=== PATIENT | female | born 1960 | race Caucasian/White ===

== ENCOUNTER 2018-12-25 18:41 | Emergency (ER) | payer BC ==
--- OUTSIDE RECORDS SUMMARY | 2018-12-25 18:43 | XMS REPORT | Clinical Summary ---
:1960 Author Organization [facility] Address [address] [place] [id number] Care Team Providers Name Role Phone Costa Ann MD Primary Care Provider Allergies No Known Allergies Medications Medication Sig Dispensed Refills Start Date End Date Status naproxen (NAPROSYN) Take 500 mg by 0 Active 500 MG tablet mouth 2 (two) times a day with meals. traMADol (ULTRAM) 50 Take 50 mg by 0 Active mg tablet mouth every 6 (six) hours as needed for moderate pain. oxyCODone (ROXICODONE) Take 10 mg by 0 Active 10 MG tablet mouth every 6 (six) hours as needed for moderate pain. mirtazapine (REMERON) Take 15 mg by 0 Active 15 MG tablet mouth nightly. Active Problems Problem Noted Date Malignant neoplasm of left lung 08/29/2017 Lung nodule 07/24/2017 Family History Medical History Relation Name Comments Lung cancer Father Anuerysm Mother Relation Name Status Comments Father Mother Social History Tobacco Use Types Packs/Day Years Used Date Former Smoker Cigarettes 1.5 30 Quit: 06/27/2014 Smokeless Tobacco: Never Used Tobacco Cessation: Counseling Given: No Alcohol Use Drinks/Week oz/Week Comments No Sex Assigned at Date Recorded Not on file Job Start Date Occupation Industry Not on file Not on file Not on file Travel History Travel Start Travel End No recent travel history available. Last Filed Vital Signs Not on file Plan of Treatment Health Maintenance Due Date Last Done Comments CERVICAL CANCER SCREENING 1980 BREAST CANCER SCREENING 2009 COLON CANCER SCREENING 2009 SHINGLES VACCINES (1 of 2) 2009 INFLUENZA VACCINE 07/02/2018 Implants Implanted Type Area Regional Facilities Manager Device Shelf Model / Identifier Expiration Serial / Date Lot Kit Selnt Plrl Air Leak 4ml Strl Progel - [id number] Surgical N/A: N/A [employer] [id number] / Implanted: 07/24/2017 (Quantity not on file) Implants; / Expanders; Extenders; Surgical Wires Results Not on fileafter 12/24/2017 Insurance Payer Benefit Plan / Group Subscriber ID Type Phone Address BCBS BCBS CHOICE PPO/FEDERAL EMPL PPO xxxxxxxxxxxx PPO ([place]) [place] [address] Advance Directives Patient has advance care planning documents on file. For more information, please contact:Max [address] [place] [address]
--- NOTE | 2018-12-25 19:47 | RAD REPORT ---
EXAM DESCRIPTION: RAD - Chest Single View - 12/25/2018 7:40 pm CLINICAL HISTORY: CHEST PAIN Chest pain. COMPARISON: Chest Pa And Lat (2 Views) dated 10/20/2018; Chest Pa And Lat (2 Views) dated 01/26/2017; CHEST PA AND LAT 2 VIEW dated 01/10/2016; CHEST PA AND LAT 2 VIEW dated 01/26/2015 FINDINGS: Portable technique limits examination quality. Prominent emphysematous changes are present throughout the lungs. Small pleural thickening is present the left costophrenic angle, chronic in appearance. Right apical pleural thickening is noted, unchan ged. The heart is normal in size. No displaced fractures. IMPRESSION: COPD without acute process seen.
[2018-12-25 20:19] LABS: Bilirubin Direct < 0.1 mg/dL (0-0.2); Bilirubin Total 0.2 mg/dL (0.2-1.0); Magnesium 2.1 mg/dL (1.8-2.4); Potassium 3.7 mmol/L (3.5-5.1); Troponin (Emerg Dept Use Only) < 0.02 ng/mL (0.0-0.045)
[2018-12-25] MEDS ORDERED: MAGNE/ALUM HYDROXD 30 ML UCUP ONE (20:45)
[2018-12-25] MEDS ORDERED: LIDOCAINE VISCOUS 2% SOLN 15 ML UDC ONE (20:46)
[2018-12-25 21:11] LABS: RBC Red Blood Cell Count 3.17 M/uL (3.86-4.86)
[2018-12-25 21:12] LABS: Hematocrit 22.7 % (36.0-45.0)
[2018-12-25 21:13] LABS: Lymphocytes % 26.2 % (15.3-44.8); MPV 7.5 fL (7.6-11.3)
[2018-12-25 21:14] LABS: Basophils % 0.8 % (0-1.3); Monocytes % 11.7 % (3.3-12.3)
[2018-12-25 21:15] LABS: Absolute Neutrophil 5.7 K/uL (1.8-8.0)
[2018-12-25 21:17] LABS: Absolute Lymphocytes (CBC) 2.5 K/uL (0.7-4.9); Absolute Monocytes 1.1 K/uL (0.1-1.3)
[2018-12-25 21:22] LABS: Bicarbonate 28 mmol/L (21-32); Sodium Level 137 mmol/L (136-145)
[2018-12-25 21:23] LABS: ALT/SGPT 12 U/L (12-78); AST/SGOT 9 U/L (15-37); Alkaline Phosphatase 132 U/L (45-117); BUN Blood Urea Nitrogen 18 mg/dL (7-18); Glucose Level 104 mg/dL (74-106); Protein, Total 7.8 g/dL (6.4-8.2)
[2018-12-25 21:24] LABS: Albumin 3.3 g/dL (3.4-5.0); Lipase 99 U/L (73-393); NT PRO-BNP 60 pg/mL (<125)
[2018-12-25 21:28] LABS: Anisocytosis 1+; Blood Morphology Comment NOTED (NOT SEEN); Hypochromasia 2+; Platelet Estimate INCR; Polychromasia SLIGHT; Urine White Blood Cell Casts OK
[2018-12-25 21:33] LABS: Protime INR 1.11
--- NOTE | 2018-12-25 21:49 | ER ---
Nurse's Notes [facility] Name: Martha Mcnamara Age: 58 yrs Sex: Female : 1960 Arrival Date: 12/25/2018 Time: 18:44 Bed 24 Private MD: Costa Ann T Diagnosis: Anemia, unspecified;Chest pain, unspecified;Heartburn Presentation: 12/25 19:05 Presenting complaint: Patient states: complains of epigastric abdominal burning sine tl3 last week-end, no hx of GERD. Transition of care: patient was not received from another setting of care. Onset of symptoms was December 21, 2017. Risk Assessment: Do you want to hurt yourself or someone else? Patient reports no desire to harm self or others. Initial Sepsis Screen: Does the patient meet any 2 criteria? No. Patient's initial sepsis screen is negative. Does the patient have a suspected source of infection? No. Patient's initial sepsis screen is negative. Care prior to arrival: None. 19:05 Method Of Arrival: Ambulatory tl3 19:05 Acuity: KISHA 3 tl3 Triage Assessment: 19:08 General: Appears uncomfortable, slender, well groomed, well developed, well nourished, tl3 Behavior is calm, cooperative, appropriate for age. Pain: Complains of pain in epigastric area. EENT: No signs and/or symptoms were reported regarding the EENT system. Neuro: Level of Consciousness is awake, alert, obeys commands, Oriented to person, place, time, situation, Appropriate for age. Cardiovascular: Patient's skin is warm and dry. Respiratory: Airway is patent Respiratory effort is even, unlabored, Respiratory pattern is regular, symmetrical. GI: Reports indigestion. : No signs and/or symptoms were reported regarding the genitourinary system. Derm: No signs and/or symptoms reported regarding the dermatologic system. Historical: - Home Meds: 19:08 Naprosyn Oral 2 times per day [Active]; oxycodone 7.5 mg Oral tab 1 tab every 6 hours tl3 [Active]; - PMHx: 19:08 Lung CA; Pneumonia; tl3 - PSHx: 19:08 Disc surgery; Joint replacement; Lobectomy; tl3 - Immunization history:: Adult Immunizations up to date. - Social history:: Smoking status: unknown. - Ebola Screening: : No symptoms or risks identified at this time. Screenin:11 Abuse screen: Denies threats or abuse. Nutritional screening: No deficits noted. tl3 Tuberculosis screening: No symptoms or risk factors identified. Fall Risk None identified. Assessment: 19:11 Reassessment: No changes from previously documented assessment. tl3 20:07 Reassessment: Patient appears in no apparent distress at this time. No changes from tl3 previously documented assessment. Patient and/or family updated on plan of care and expected duration. Pain level reassessed. Patient is alert, oriented x 3, equal unlabored respirations, skin warm/dry/pink. 21:00 Reassessment: Patient appears in no apparent distress at this time. No changes from tl3 previously documented assessment. Patient and/or family updated on plan of care and expected duration. Pain level reassessed. Patient is alert, oriented x 3, equal unlabored respirations, skin warm/dry/pink. critical HGB level of 7.2 called from lab, [place] notified. 21:28 Reassessment: Patient appears in no apparent distress at this time. No changes from tl3 previously documented assessment. Patient and/or family updated on plan of care and expected duration. Pain level reassessed. Patient is alert, oriented x 3, equal unlabored respirations, skin warm/dry/pink. reno at bedside for occult blood test. 21:52 Reassessment: Patient appears in no apparent distress at this time. No changes from tl3 previously documented assessment. Patient and/or family updated on plan of care and expected duration. Pain level reassessed. Patient is alert, oriented x 3, equal unlabored respirations, skin warm/dry/pink. Vital Signs: 19:08 BP 126 / 81; Pulse 85; Resp 18; Temp 98.6(O); Pulse Ox 100% on R/A; Weight 56.7 kg; tl3 Height 5 ft. 5 in. (165.10 cm); 20:07 BP 115 / 67; Pulse 79; Resp 18; Pulse Ox 99% on R/A; tl3 21:00 BP 139 / 75; Pulse 73; Resp 18; Pulse Ox 100% on R/A; tl3 21:52 BP 130 / 80; Pulse 70; Resp 18; Pulse Ox 100% on R/A; tl3 19:08 Body Mass Index 20.80 (56.70 kg, 165.10 cm) tl3 ED Course: 18:44 Patient arrived in ED. mr 18:44 Costa Ann MD is Private Physician. mr 18:57 [place] Collins NP is PHCP. pm1 18:57 Daniele West MD is Attending Physician. pm1 19:04 Adri Amaya, RN is Primary Nurse. tl3 19:07 Triage completed. tl3 19:08 Arm band placed on right wrist. tl3 19:11 Patient has correct armband on for positive identification. Bed in low position. Call tl3 light in reach. 19:11 No provider procedures requiring assistance completed. tl3 19:41 Inserted saline lock: 22 gauge in left wrist, using aseptic technique. Blood collected. mg2 by ZARA Rush. 20:06 XRAY Chest (1 view) Sent. tl3 21:00 Warm blanket given. tl3 21:52 IV discontinued, intact, bleeding controlled, No redness/swelling at site. Pressure tl3 dressing applied. 21:58 [place] MD is Referral Physician. pm1 Administered Medications: 20:43 Drug: GI Cocktail without - (Maalox Suspension 30 ml, Lidocaine Liquid 2 % 15 mg2 ml) Route: PO; 21:10 Follow up: Response: No adverse reaction tl3 21:51 Drug: Pepcid 20 mg Route: IVP; Infused Over: 2 mins; Site: left wrist; tl3 21:53 Follow up: Response: Medication administered at discharge. tl3 Outcome: 21:49 Discharge ordered by . pm1 21:52 Discharged to home ambulatory. tl3 21:52 Condition: stable 21:52 Discharge instructions given to patient, Instructed on discharge instructions, follow up and referral plans. medication usage, Demonstrated understanding of instructions, follow-up care, medications, Prescriptions given X 2. 22:06 Patient left the ED. tl3 Signatures: Marybeth Kaiser mr [place] Collins, JESUS ELECTRONICS TEACHER pm1 Adri Amaya, ZARA RN tl3 Shaun Saenz RN RN mg2
--- NOTE | 2018-12-25 21:49 | EDPHYS ---
Physician Documentation [facility] Name: Martha Mcnamara Age: 58 yrs Sex: Female : 1960 Arrival Date: 12/25/2018 Time: 18:44 Bed 24 Private MD: Costa Ann T ED Physician Daniele West HPI: 12/25 19:10 This 58 yrs old Female presents to ER via Ambulatory with complaints of pm1 Heartburn. 19:10 The patient or guardian reports chest pain that is located primarily in the mid-sternal pm1 area. Onset: 1 week(s) ago. The pain does not radiate. Associated signs and symptoms: Pertinent negatives: abdominal pain, cough, diaphoresis, dizziness, headache, lightheadedness, nausea, near syncope, palpitations, shortness of breath, vomiting. The chest pain is described as burning. Duration: The patient or guardian reports a single episode, that is still ongoing, and unchanged. Modifying factors: The symptoms are alleviated by nothing. the symptoms are aggravated by eating. Severity of pain: in the emergency department the pain is unchanged. The patient has not experienced similar symptoms in the past. The patient has not recently seen a physician. Historical: - Home Meds: 19:08 Naprosyn Oral 2 times per day [Active]; oxycodone 7.5 mg Oral tab 1 tab every 6 hours tl3 [Active]; - PMHx: 19:08 Lung CA; Pneumonia; tl3 - PSHx: 19:08 Disc surgery; Joint replacement; Lobectomy; tl3 - Immunization history:: Adult Immunizations up to date. - Social history:: Smoking status: unknown. - Ebola Screening: : No symptoms or risks identified at this time. ROS: 19:10 Constitutional: Negative for fever, chills, and weight loss, Eyes: Negative for injury, pm1 pain, redness, and discharge, ENT: Negative for injury, pain, and discharge, Neck: Negative for injury, pain, and swelling. 19:10 Respiratory: Negative for shortness of breath, cough, wheezing, and pleuritic chest pain, Abdomen/GI: Negative for abdominal pain, nausea, vomiting, diarrhea, and constipation, Back: Negative for injury and pain, : Negative for injury, bleeding, discharge, and swelling, MS/Extremity: Negative for injury and deformity, Skin: Negative for injury, rash, and discoloration, Neuro: Negative for headache, weakness, numbness, tingling, and seizure. 19:10 Cardiovascular: Positive for chest pain, Negative for edema, orthopnea, palpitations. Exam: 19:10 Constitutional: This is a well developed, well nourished patient who is awake, alert, pm1 and in no acute distress. Head/Face: Normocephalic, atraumatic. Eyes: Pupils equal round and reactive to light, extra-ocular motions intact. Lids and lashes normal. Conjunctiva and sclera are non-icteric and not injected. Cornea within normal limits. Periorbital areas with no swelling, redness, or edema. ENT: Nares patent. No nasal discharge, no septal abnormalities noted. Tympanic membranes are normal and external auditory canals are clear. Oropharynx with no redness, swelling, or masses, exudates, or evidence of obstruction, uvula midline. Mucous membranes moist. Neck: Trachea midline, no thyromegaly or masses palpated, and no cervical lymphadenopathy. Supple, full range of motion without nuchal rigidity, or vertebral point tenderness. No Meningismus. Chest/axilla: Normal chest wall appearance and motion. Nontender with no deformity. No lesions are appreciated. Cardiovascular: Regular rate and rhythm with a normal S1 and S2. No gallops, murmurs, or rubs. Normal PMI, no JVD. No pulse deficits. Respiratory: Lungs have equal breath sounds bilaterally, clear to auscultation and percussion. No rales, rhonchi or wheezes noted. No increased work of breathing, no retractions or nasal flaring. Abdomen/GI: Soft, non-tender, with normal bowel sounds. No distension or tympany. No guarding or rebound. No evidence of tenderness throughout. Back: No spinal tenderness. No costovertebral tenderness. Full range of motion. 19:10 MS/ Extremity: Pulses equal, no cyanosis. Neurovascular intact. Full, normal range of motion. 19:10 Skin: Appearance: normal except for affected area, Color: pale. 19:10 Neuro: Orientation: is normal, Motor: is normal, moves all fours, Sensation: is normal, no obvious gross deficits. 21:22 Abdomen/GI: Rectal exam: rectal tone normal, Stool: brown, guaiac negative, mass, is pm1 not appreciated, swelling, is not appreciated, tenderness, is not appreciated, Shaun ZUÑIGA. Vital Signs: 19:08 BP 126 / 81; Pulse 85; Resp 18; Temp 98.6(O); Pulse Ox 100% on R/A; Weight 56.7 kg; tl3 Height 5 ft. 5 in. (165.10 cm); 20:07 BP 115 / 67; Pulse 79; Resp 18; Pulse Ox 99% on R/A; tl3 21:00 BP 139 / 75; Pulse 73; Resp 18; Pulse Ox 100% on R/A; tl3 21:52 BP 130 / 80; Pulse 70; Resp 18; Pulse Ox 100% on R/A; tl3 19:08 Body Mass Index 20.80 (56.70 kg, 165.10 cm) tl3 MDM: 19:03 Patient medically screened. pm1 21:24 Data reviewed: vital signs. Data interpreted: Pulse oximetry: on room air is 100 %. pm1 Interpretation: normal. 21:24 ED course: GI cocktail resolved patient's pain. pm1 21:46 Counseling: I had a detailed discussion with the patient and/or guardian regarding: the pm1 historical points, exam findings, and any diagnostic results supporting the discharge/admit diagnosis, lab results, radiology results, the need for outpatient follow up, a bakery decorator, EGD, to return to the emergency department if symptoms worsen or persist or if there are any questions or concerns that arise at home. 21:51 ED course: Patient with history of anemia in the past with iron supplementation. pm1 Patient with negative stool guaiac and asymptomatic for anemia. Pain resolved with GI cocktail. Will discharge patient home with iron supplement, and Pepcid. Recommended follow up with GI for EGD and PCP for anemia management. 12/25 19:08 Order name: Basic Metabolic Panel; Complete Time: 21:26 pm12/25 19:08 Order name: CBC with Diff; Complete Time: 21:33 pm12/25 19:08 Order name: LFT's; Complete Time: 21: pm12/25 19:08 Order name: Magnesium; Complete Time: 21: pm12/25 19:08 Order name: NT PRO-BNP; Complete Time: 21: pm12/25 19:08 Order name: PT-INR; Complete Time: 21:40 pm1 12/25 19:08 Order name: Troponin (emerg Dept Use Only); Complete Time: 21:26 pm1 12/25 19:08 Order name: XRAY Chest (1 view) pm1 12/25 19:08 Order name: Lipase; Complete Time: 21:26 pm1 12/25 19:51 Order name: RAD; Complete Time: 19:55 EDMS 12/25 21:09 Order name: CBC Smear Scan; Complete Time: 21:33 EDMS 12/25 19:08 Order name: EKG; Complete Time: 19:09 pm1 12/25 19:08 Order name: Cardiac monitoring; Complete Time: 19:40 pm1 12/25 19:08 Order name: EKG - Nurse/Tech; Complete Time: 19:40 pm1 12/25 19:08 Order name: IV Saline Lock; Complete Time: 19:40 pm1 12/25 19:08 Order name: Labs collected and sent; Complete Time: 19:40 pm1 12/25 19:08 Order name: O2 Per Protocol; Complete Time: 19:15 pm1 12/25 19:08 Order name: O2 Sat Monitoring; Complete Time: 19:15 pm1 Administered Medications: 20:43 Drug: GI Cocktail without - (Maalox Suspension 30 ml, Lidocaine Liquid 2 % 15 mg2 ml) Route: PO; 21:10 Follow up: Response: No adverse reaction tl3 21:51 Drug: Pepcid 20 mg Route: IVP; Infused Over: 2 mins; Site: left wrist; tl3 21:53 Follow up: Response: Medication administered at discharge. tl3 Disposition: 12/25/18 21:49 Discharged to Home. Impression: Anemia, unspecified, Chest pain, unspecified, Heartburn. - Condition is Stable. - Discharge Instructions: Anemia, Nonspecific, Gastroesophageal Reflux Disease, Adult. - Prescriptions for Ferrous Sulfate 325 mg (65 mg Iron) Oral Tablet - take 1 tablet by ORAL route every 8 hours; 90 tablet. Pepcid 20 mg Oral Tablet - take 1 tablet by ORAL route once daily; 20 tablet. - Medication Reconciliation Form, Thank You Letter, Antibiotic Education, Prescription Opioid Use form. - Follow up: Emergency Department; When: As needed; Reason: Worsening of condition. Follow up: Private Physician; When: 2 - 3 days; Reason: Recheck today's complaints, Continuance of care, Re-evaluation by your physician. Follow up: [place] MD; When: 2 - 3 days; Reason: Recheck today's complaints, Continuance of care, Re-evaluation by your physician. - Problem is new. - Symptoms have improved. Addendum: 01/01/2019 08:57 Co-signature as Attending Physician, Daniele West MD I agree with the assessment and k dr plan of care. Signatures: Dispatcher [employer] [facility] Daniele West MD MD kdr Jignesh Collins NP [employer] pm1 Adri Amaya, ZARA RN tl3 Shaun Saenz RN RN mg2 Corrections: (The following items were deleted from the chart) 12/25 21:09 20:01 Manual Differential ordered. [facility] : 20:31 Manual Differential reviewed. pm1 EDIA 21:58 21:49 12/25/2018 21:49 Discharged to Home. Impression: Anemia, unspecified; Chest pain, pm1 unspecified; Heartburn. Condition is Stable. Forms are Medication Reconciliation Form, Thank You Letter, Antibiotic Education, Prescription Opioid Use. Follow up: Emergency Department; When: As needed; Reason: Worsening of condition. Follow up: Private Physician; When: 2 - 3 days; Reason: Recheck today's complaints, Continuance of care, Re-evaluation by your physician. Problem is new. Symptoms have improved. pm1 22:06 21:58 12/25/2018 21:49 Discharged to Home. Impression: Anemia, unspecified; Chest pain, tl3 unspecified; Heartburn. Condition is Stable. Discharge Instructions: Anemia, Nonspecific, Esophagitis. Prescriptions for Ferrous Sulfate 325 mg (65 mg Iron) Oral Tablet - take 1 tablet by ORAL route every 8 hours; 90 tablet, Protonix 40 mg Oral Tablet - take 1 tablet by ORAL route once daily; 30 tablet. and Forms are Medication Reconciliation Form, Thank You Letter, Antibiotic Education, Prescription Opioid Use. Follow up: Emergency Department; When: As needed; Reason: Worsening of condition. Follow up: Private Physician; When: 2 - 3 days; Reason: Recheck today's complaints, Continuance of care, Re-evaluation by your physician. Follow up: [place]; When: 2 - 3 days; Reason: Recheck today's complaints, Continuance of care, Re-evaluation by your physician. Problem is new. Symptoms have improved. pm1
[2018-12-25] MEDS ORDERED: FAMOTIDINE 20 MG/2 ML VIAL IV ONE (21:59)
[2018-12-25 22:21] VITALS: TEMP 98.6
[2018-12-25 22:24] VITALS: O2SAT 100
[2018-12-25 22:26] VITALS: BP 130/80
--- NOTE | 2018-12-26 11:53 | EKG ---
Test Date: 2018-12-25 Test Time: 19:36:23 Press Manager: MG MEASUREMENT RESULTS: Intervals: Rate: 73 ID: [id number] QRSD: 84 QT: 392 QTc: 431 [place]: P: 27 ID: [id number] QRS: 69 T: 49 INTERPRETIVE STATEMENTS: Normal sinus rhythm Normal ECG Compared to ECG 06/05/2014 12:42:01 ST (T wave) deviation no longer present Possible ischemia no longer present Electronically Signed On 12-26-18 11:51:54 STUDENT SUPPORT SERVICES DIRECTOR by Jefe Frausto
== END 2018-12-25 22:06 | disposition home or self-care (01) ==
LOC: ER 18:41
DX: R12 Heartburn (principal); D64.9 Anemia, unspecified; R07.9 Chest pain, unspecified
CPT/HCPCS: 36415; 71045; 80048; 80076; 83690; 83735; 83880; 84484; 85025; 85610; 93005; 96374; 99284

== ENCOUNTER 2019-12-13 12:50 | Emergency (ER) | payer BC ==
[2019-12-13] MEDS ORDERED: IPRATROPIUM BROM 0.5MG/2.5ML ONE (13:29)
[2019-12-13] MEDS ORDERED: METHYLPREDNISOLONE 125 MG INJ ONE (13:29)
[2019-12-13] MEDS ORDERED: LEVALBUTEROL 1.25 MG/3 ML NEB ONE (13:29)
--- NOTE | 2019-12-13 15:17 | RAD REPORT ---
EXAM DESCRIPTION: RAD - Chest Pa And Lat (2 Views) - 12/13/2019 1:52 pm CLINICAL HISTORY: hx of cancer and lobectomy/radiation, sob;Cough Chest pain. COMPARISON: Chest Pa And Lat (2 Views) dated 01/07/2019; Chest Single View dated 12/25/2018; Chest Pa A nd Lat (2 Views) dated 10/20/2018; Chest Pa And Lat (2 Views) dated 01/26/2017; Thorax W/ Con dated FINDINGS: Prominent emphysema is noted. Right apical pleural thickening is seen. A left hilar/suprah ilar mass lesion is identified, new since comparative chest radiograph. Mild scarring is present in t he left upper lobe laterally. The heart is upper limit of normal in size. IMPRESSION: A left hilar/ suprahilar mass has developed since the comparative study, likely neoplasi a.
--- NOTE | 2019-12-13 15:40 | EDPHYS ---
Physician Documentation [facility] Name: Martha Mcnamara Age: 58 yrs Sex: Female : 1960 Arrival Date: 12/13/2019 Time: 12:53 Bed 15 Private MD: Costa Ann T ED Physician Ernesto Aragon HPI: 12/13 14:10 This 58 yrs old Female presents to ER via Ambulatory with complaints of rn Breathing Difficulty. 14:10 The patient has shortness of breath with light activity. Onset: The symptoms/episode rn began/occurred 1 week(s) ago. Duration: The symptoms are intermittent. The patient's shortness of breath is aggravated by exertion, is alleviated by rest. Severity of symptoms: At their worst the symptoms were moderate in the emergency department the symptoms are unchanged. The patient has experienced similar episodes in the past. reports sob with exertion, has COPD and hx of lung cancer but cancer free currently, still vapes, no fever. . Historical: - Allergies: 13:00 No Known Allergies; aj1 - Home Meds: 13:00 Naprosyn Oral 2 times per day [Active]; oxycodone 7.5 mg Oral tab 1 tab every 6 hours aj1 [Active]; unknown anxiety medicine [Active]; - PMHx: 13:00 Lung CA; Pneumonia; aj1 - Immunization history:: Flu vaccine is up to date. - Social history:: Smoking status: Patient/guardian denies using tobacco. - Ebola Screening: : Patient denies travel to an Ebola-affected area in the 21 days before illness onset. - Family history:: not pertinent. - Hospitalizations: : No recent hospitalization is reported. ROS: 14:10 Constitutional: Negative for fever, chills, and weight loss, Eyes: Negative for injury, rn pain, redness, and discharge, Neck: Negative for injury, pain, and swelling, Cardiovascular: Negative for chest pain, palpitations, and edema, Respiratory: + sob Abdomen/GI: Negative for abdominal pain, nausea, vomiting, diarrhea, and constipation, Back: Negative for injury and pain, MS/Extremity: Negative for injury and deformity, Skin: Negative for injury, rash, and discoloration, Neuro: Negative for headache, weakness, numbness, tingling, and seizure. Exam: 14:10 Constitutional: This is a well developed, well nourished patient who is awake, alert, rn and in no acute distress. Head/Face: Normocephalic, atraumatic. Eyes: Pupils equal round and reactive to light, extra-ocular motions intact. Lids and lashes normal. Conjunctiva and sclera are non-icteric and not injected. Cornea within normal limits. Periorbital areas with no swelling, redness, or edema. Cardiovascular: Regular rate and rhythm. No pulse deficits. Respiratory: + diffuse exp wheezing, no retractions Abdomen/GI: soft, non-tender MS/ Extremity: Pulses equal, no cyanosis. Neurovascular intact. Full, normal range of motion. Equal circumference. Neuro: Awake and alert, GCS 15, oriented to person, place, time, and situation. Cranial nerves II-XII grossly intact. Motor strength 5/5 in all extremities. Sensory grossly intact. Vital Signs: 13:00 BP 129 / 90; Pulse 86; Resp 18; Temp 97.8; Pulse Ox 97% on R/A; Weight 56.7 kg (R); aj1 Height 5 ft. 5 in. (165.10 cm) (R); Pain 0/10; 14:08 BP 118 / 80; Pulse 75; Resp 17; Pulse Ox 100% on Nebulizer Mask; tw2 15:04 BP 121 / 81; Pulse 84; Resp 17; Pulse Ox 95% on R/A; tw2 15:48 BP 127 / 83; Pulse 74; Resp 17; Pulse Ox 95% on R/A; tw2 13:00 Body Mass Index 20.80 (56.70 kg, 165.10 cm) aj1 MDM: 13:07 Patient medically screened. rn 15:31 Differential diagnosis: Chronic Obstructive Pulmonary Disease pneumonia, Pneumothorax rn lung mass, recurrence of cancer. Data reviewed: vital signs, nurses notes, radiologic studies, plain films, and as a result, I will discharge patient. Counseling: I had a detailed discussion with the patient and/or guardian regarding: the historical points, exam findings, and any diagnostic results supporting the discharge/admit diagnosis, radiology results, the need for outpatient follow up, to return to the emergency department if symptoms worsen or persist or if there are any questions or concerns that arise at home. Response to treatment: the patient's symptoms have markedly improved after treatment, and as a result, I will discharge patient. Special discussion: I discussed with the patient/guardian in detail that at this point there is no indication for admission to the hospital. It is understood, however, that if the symptoms persist or worsen the patient needs to return immediately for re-evaluation. Based on the history and exam findings, there is no indication for further emergent testing or inpatient evaluation. I discussed with the patient/guardian the need to see the tilesetter/oncologist for further evaluation of the symptoms. I discussed with the patient/guardian the need to see the marketing data specialist for further evaluation of the symptoms. 15:35 ED course: Discussed possible recurrence of lung cancer with patient, she has dealt rn with recurrence before and undergone treatment 3 times, knows what to do and understands need to f/u and notify her lung and cancer doctors. For now, will treat with steroids and inhaler prn as felt better with treatment here. . 12/13 13:21 Order name: XRAY Chest Pa And Lat (2 Views); Complete Time: 15:18 rn 12/13 13:21 Order name: IV Start; Complete Time: 13:38 rn Administered Medications: 13:30 Drug: Xopenex (3) 1.25 mg Route: Inhalation; tw2 13:30 Drug: AtroVENT Aerosol 0.5 mg Route: Inhalation; tw2 13:35 Drug: SOLU-Medrol 125 mg Route: IVP; Site: right antecubital; tw2 15:04 Follow up: Response: No adverse reaction tw2 Disposition: 12/13/19 15:39 Discharged to Home. Impression: Chronic obstructive pulmonary disease, unspecified, Left lung mass. - Condition is Stable. - Discharge Instructions: Chronic Obstructive Pulmonary Disease, Lung Cancer. - Prescriptions for Prednisone 20 mg Oral Tablet - take 3 tablet by ORAL route once daily for 5 days; 15 tablet. Albuterol Sulfate 90 mcg/actuation - inhale 1-2 puff by INHALATION route every 4-6 hours; 1 Inhaler. - Medication Reconciliation Form, Thank You Letter, Antibiotic Education, Prescription Opioid Use form. - Follow up: Private Physician; When: 2 - 3 days; Reason: Recheck today's complaints, Re-evaluation by your physician. - Problem is new. - Symptoms have improved. Signatures: Dispatcher [employer] EDMS Katey Celestin RN RN aj1 Ernesto Aragon MD MD rn Wise, Tara, RN RN tw2 Corrections: (The following items were deleted from the chart) 15:37 15:31 Special discussion: I discussed with the patient/guardian in detail that at this rn point there is no indication for admission to the hospital. It is understood, however, that if the symptoms persist or worsen the patient needs to return immediately for re-evaluation. Based on the history and exam findings, there is no indication for further emergent testing or inpatient evaluation. I discussed with the patient/guardian the need to see the tilesetter/oncologist for further evaluation of the symptoms. I discussed with the patient/guardian the need to see the marketing data specialist for further evaluation of the symptoms. rn 15:50 15:39 12/13/2019 15:39 Discharged to Home. Impression: Chronic obstructive pulmonary tw2 disease, unspecified; Left lung mass. Condition is Stable. Forms are Medication Reconciliation Form, Thank You Letter, Antibiotic Education, Prescription Opioid Use. Follow up: Private Physician; When: 2 - 3 days; Reason: Recheck today's complaints, Re-evaluation by your physician. Problem is new. Symptoms have improved. rn
--- NOTE | 2019-12-13 15:40 | ER ---
Nurse's Notes [facility] Name: Martha Mcnamara Age: 58 yrs Sex: Female : 1960 Arrival Date: 12/13/2019 Time: 12:53 Bed 15 Private MD: Costa Ann T Diagnosis: Chronic obstructive pulmonary disease, unspecified;Left lung mass Presentation: 12/13 12:58 Presenting complaint: Patient states: "I can't walk very far before I get really out of aj1 breath" Patient reports productive cough. Denies congestion. Denies fever. Denies N/V/D. Transition of care: patient was not received from another setting of care. Onset of symptoms was December 13, 2019. Risk Assessment: Do you want to hurt yourself or someone else? Patient reports no desire to harm self or others. Initial Sepsis Screen: Does the patient meet any 2 criteria? No. Patient's initial sepsis screen is negative. Does the patient have a suspected source of infection? Yes: Productive cough/pneumonia. Care prior to arrival: None. 12:58 Method Of Arrival: Ambulatory aj1 12:58 Acuity: KISHA 3 aj1 Triage Assessment: 13:00 General: Appears in no apparent distress. comfortable, Behavior is calm, cooperative, aj1 appropriate for age. Pain: Denies pain. EENT:. Neuro: Level of Consciousness is awake, alert, obeys commands. Cardiovascular: Patient's skin is warm and dry. Respiratory: Reports shortness of breath cough that is productive, Airway is patent Respiratory effort is even, unlabored, Respiratory pattern is regular, symmetrical, Onset: The symptoms/episode began/occurred gradually, the patient has mild shortness of breath. Historical: - Allergies: 13:00 No Known Allergies; aj1 - Home Meds: 13:00 Naprosyn Oral 2 times per day [Active]; oxycodone 7.5 mg Oral tab 1 tab every 6 hours aj1 [Active]; unknown anxiety medicine [Active]; - PMHx: 13:00 Lung CA; Pneumonia; aj1 - Immunization history:: Flu vaccine is up to date. - Social history:: Smoking status: Patient/guardian denies using tobacco. - Ebola Screening: : Patient denies travel to an Ebola-affected area in the 21 days before illness onset. - Family history:: not pertinent. - Hospitalizations: : No recent hospitalization is reported. Screenin:04 Abuse screen: Denies threats or abuse. Nutritional screening: No deficits noted. tw2 Tuberculosis screening: No symptoms or risk factors identified. Fall Risk None identified. Assessment: 13:02 General: Appears in no apparent distress. slender, Behavior is calm, cooperative, tw2 appropriate for age. Neuro: Level of Consciousness is awake, alert, obeys commands, Oriented to person, place, time, situation. Cardiovascular: Heart tones S1 S2 Patient's skin is warm and dry. Rhythm is regular. Respiratory: Airway is patent Respiratory effort is even, unlabored, Respiratory pattern is regular, symmetrical, Breath sounds are clear bilaterally. Respiratory: Reports shortness of breath at rest on exertion. GI: No signs and/or symptoms were reported involving the gastrointestinal system. Abdomen is flat, Bowel sounds present X 4 quads. : No signs and/or symptoms were reported regarding the genitourinary system. EENT: No signs and/or symptoms were reported regarding the EENT system. Derm: No signs and/or symptoms reported regarding the dermatologic system. Musculoskeletal: Range of motion: intact in all extremities. 14:06 Reassessment: Patient appears in no apparent distress at this time. No changes from tw2 previously documented assessment. Patient and/or family updated on plan of care and expected duration. Pain level reassessed. Patient is alert, oriented x 3, equal unlabored respirations, skin warm/dry/pink. 15:04 Reassessment: Patient appears in no apparent distress at this time. No changes from tw2 previously documented assessment. Patient and/or family updated on plan of care and expected duration. Pain level reassessed. Patient is alert, oriented x 3, equal unlabored respirations, skin warm/dry/pink. 15:29 Reassessment: provider at bedside at this time. tw2 15:49 Reassessment: Patient appears in no apparent distress at this time. No changes from tw2 previously documented assessment. Patient and/or family updated on plan of care and expected duration. Pain level reassessed. Patient is alert, oriented x 3, equal unlabored respirations, skin warm/dry/pink. Vital Signs: 13:00 BP 129 / 90; Pulse 86; Resp 18; Temp 97.8; Pulse Ox 97% on R/A; Weight 56.7 kg (R); aj1 Height 5 ft. 5 in. (165.10 cm) (R); Pain 0/10; 14:08 BP 118 / 80; Pulse 75; Resp 17; Pulse Ox 100% on Nebulizer Mask; tw2 15:04 BP 121 / 81; Pulse 84; Resp 17; Pulse Ox 95% on R/A; tw2 15:48 BP 127 / 83; Pulse 74; Resp 17; Pulse Ox 95% on R/A; tw2 13:00 Body Mass Index 20.80 (56.70 kg, 165.10 cm) aj1 ED Course: 12:53 Patient arrived in ED. ag5 12:53 Costa Ann MD is Private Physician. ag5 12:59 Triage completed. aj1 13:00 Arm band placed on Patient placed in an exam room. aj1 13:04 Elena Judd RN is Primary Nurse. tw2 13:04 Bed in low position. Call light in reach. child monitor on. Pulse ox on. NIBP on. tw2 13:06 Ernesto Aragon MD is Attending Physician. rn 13:35 Inserted saline lock: 22 gauge in right antecubital area, using aseptic technique. tw2 13:50 XRAY Chest Pa And Lat (2 Views) In Process Unspecified. EDMS 15:49 No provider procedures requiring assistance completed. IV discontinued, intact, tw2 bleeding controlled, No redness/swelling at site. Pressure dressing applied. Administered Medications: 13:30 Drug: Xopenex (3) 1.25 mg Route: Inhalation; tw2 13:30 Drug: AtroVENT Aerosol 0.5 mg Route: Inhalation; tw2 13:35 Drug: SOLU-Medrol 125 mg Route: IVP; Site: right antecubital; tw2 15:04 Follow up: Response: No adverse reaction tw2 Outcome: 15:39 Discharge ordered by . rn 15:49 Discharged to home ambulatory. tw2 15:49 Condition: stable 15:49 Discharge instructions given to patient, Instructed on discharge instructions, follow up and referral plans. medication usage, Demonstrated understanding of instructions, follow-up care, medications, Prescriptions given X 2. 15:50 Patient left the ED. tw2 Signatures: Dispatcher [employer] EDMS Katey Celestin RN RN aj1 Ernesto Aragon MD MD rn Wise, Tara, RN RN tw2 Margaret Calixto ag5 Corrections: (The following items were deleted from the chart) 13:38 13:35 Inserted saline lock: 22 gauge in right antecubital area, using aseptic tw2 technique. Blood collected. tw2
[2019-12-13 16:02] VITALS: TEMP 97.8
[2019-12-13 16:05] VITALS: O2SAT 95
[2019-12-13 16:06] VITALS: BP 127/83
== END 2019-12-13 15:50 | disposition home or self-care (01) ==
LOC: ER 12:50
DX: J44.9 Chronic obstructive pulmonary disease, unspecified (principal); R91.8 Other nonspecific abnormal finding of lung field; Z85.118 Personal history of other malignant neoplasm of bronchus and lung
CPT/HCPCS: 71046; 96374; 99285; J2930